=== PATIENT | male | born 2000 | race Asian ===

== ENCOUNTER 2019-12-17 01:36 | Emergency (ER) | payer SELFPAY ==
[~2019-12-17] VITALS: Ht 172.7 cm; Wt 127.3 kg
[2019-12-17 01:37] VITALS: TEMP 97.3
[2019-12-17 02:16] LABS: BASO # 0.1 (0.0-0.2); BASO % 0.7 % (0.0-2.0); EOS # 0.6 (0.0-0.7); EOS % 4.9 % (0-4.0); GRAN # 6.3 (1.4-6.5); GRAN % 51.7 % (42.2-75.2); HEMATOCRIT 47.8 % (42.0-52.0); HEMOGLOBIN 15.9 g/dl (13.5-18.0); LYMPH # 4.3 (1.2-3.4); LYMPH % 35.4 % (20.0-51.0); MEAN CELL VOLUME 97 fl (80.0-100.0); MEAN CORPUSCULAR HEMOGLOBIN 32 pg (27.0-31.0); MEAN CORPUSCULAR HGB CONC 33 g/dl (33.0-37.0); MEAN PLATELET VOLUME 9.2 fl (7.4-10.4); MONO # 0.9 (0.1-0.6); MONO % 7.1 % (1.7-9.3); PLATELET COUNT 237 K/mm3 (130-400); RED BLOOD COUNT 4.92 M/mm3 (4.20-5.60); REDCELL DISTRIBUTION WIDTH-CV 12.4 % (11.5-14.5)
[2019-12-17 02:18] LABS: INR 0.9 (0.8-3.0); PROTHROMBIN TIME 10.4 SECONDS (9.7-12.8)
[2019-12-17 02:21] LABS: PARTIAL THROMBOPLASTIN TIME 36.2 SECONDS (26.0-37.0)
[2019-12-17 02:26] LABS: ALBUMIN 4.2 gm/dL (3.5-5.0); BILIRUBIN,TOTAL 0.4 mg/dL (0.0-1.0); CALCIUM 8.9 mg/dL (8.4-10.2); CREATININE, serum 1.1 (0.66-1.25); POTASSIUM 3.7 mmol/L (3.4-5.0)
[2019-12-17 09:15] VITALS: BP 118/76
[2019-12-17 10:16] VITALS: PULSE 71
== END 2019-12-17 11:30 | disposition home or self-care (01) ==
LOC: COL.ER 01:36
PROVIDERS: Emergency Medicine
DX: F10.129 Alcohol abuse with intoxication, unspecified (principal); S60.419A Abrasion of unspecified finger, initial encounter; S80.212A Abrasion, left knee, initial encounter; S00.81XA Abrasion of other part of head, initial encounter; S00.01XA Abrasion of scalp, initial encounter; Y90.8 Blood alcohol level of 240 mg/100 ml or more; Y04.0XXA Assault by unarmed brawl or fight, initial encounter

== ENCOUNTER 2020-01-18 00:31 | Emergency (ER) | payer SELFPAY ==
[~2020-01-18] VITALS: Ht 172.7 cm; Wt 81.8 kg
[2020-01-18 00:40] VITALS: TEMP 97
[2020-01-18 06:11] VITALS: BP 104/84; PULSE 68
== END 2020-01-18 06:20 | disposition home or self-care (01) ==
LOC: COL.ER 00:31
DX: F10.129 Alcohol abuse with intoxication, unspecified (principal); Y90.8 Blood alcohol level of 240 mg/100 ml or more